=== PATIENT | female | born 1965 | race Caucasian/White ===

== ENCOUNTER 2019-12-31 10:26 | Emergency (ER) | payer BC ==
[~2019-12-31] VITALS: Ht 170.2 cm; Wt 58.5 kg
[2019-12-31] MEDS ORDERED: SINGULAIR 10MG10 MG (10:40)
[2019-12-31] MEDS ORDERED: HYDROXYCHLOROQ200 MG (10:40)
[2019-12-31] MEDS ORDERED: AMLODIPINE-OLM1 EAC3 (10:40)
[2019-12-31] MEDS ORDERED: URIN D.S. TABL1 EACH PO (14:33)
== END 2019-12-31 14:47 | disposition home or self-care (01) ==
LOC: ER 10:26
DX: N39.0 Urinary tract infection, site not specified (principal); B96.29 Other Escherichia coli [E. coli] as the cause of diseases classified elsewhere; R31.0 Gross hematuria; Z03.818 Encounter for observation for suspected exposure to other biological agents ruled out

== ENCOUNTER 2020-03-10 13:26 | Emergency (ER) | payer BC ==
[~2020-03-10] VITALS: Ht 170.2 cm; Wt 59.0 kg
[~2020-03-10 13:26] MED LIST: AMLODIPINE-OLM1 EAC3; HYDROXYCHLOROQ200 MG; SINGULAIR 10MG10 MG; URIN D.S. TABL1 EACH PO
[2020-03-10] MEDS ORDERED: KETO10TA2 PO (17:54)
[2020-03-10] MEDS ORDERED: CIPRO500 MG PO (17:54)
[2020-03-10] MEDS ORDERED: TAMS0.4C PO (17:54)
== END 2020-03-10 19:17 | disposition home or self-care (01) ==
LOC: ER 13:26
DX: N20.0 Calculus of kidney (principal); Z03.818 Encounter for observation for suspected exposure to other biological agents ruled out